=== PATIENT | female | born 1940 | race Asian ===

== ENCOUNTER 2017-12-26 02:19 | Inpatient (IN) | payer MEDICARE, BC ==
[2017-12-26] MEDS: NORepinephrine 8MG/250 ML (PMX 250 ML IV (03:40)
[2017-12-26 06:09] LABS: ABNORMAL IP MESSAGE 1; HEMATOCRIT 24.5 % (37.0-47.0); HEMOGLOBIN 7.5 g/dl (12.0-16.0); MEAN CORPUSCULAR HEMOGLOBIN 27.6 pg (29.0-33.0); MEAN CORPUSCULAR HGB CONC 30.6 g/dl (32.0-37.0); MEAN CORPUSCULAR VOLUME 90.1 fl (82.0-101.0); MEAN PLATELET VOLUME 11.7 fl (7.4-10.4); NUCLEATED RED BLOOD CELLS% 0.6 /100WBC (0.0-0.0); PLATELET COUNT 157 10^3/UL (140-415); RED BLOOD COUNT 2.72 10^6/ul (4.20-5.40); RED CELL DISTRIBUTION WIDTH 22.5 % (11.5-14.5)
[2017-12-26 06:09] LABS: WHITE BLOOD COUNT 17.9 10^3/ul (4.8-10.8)
[2017-12-26 06:29] LABS: ADD MAN DIFF? YES; POSITIVE DIFF @See below
[2017-12-26] MEDS ORDERED: ONDANSETRON 4 MG INJ IV (06:30)
[2017-12-26] MEDS ORDERED: AMIKACIN IV PER PHARMACY XX (06:30)
[2017-12-26] MEDS ORDERED: ACETAMINOPHEN 650MG/20.3ML CUP GTB (06:30)
[2017-12-26] MEDS ORDERED: SOD CHLORIDE 0.9% 500 ML IV (06:30)
[2017-12-26] MEDS ORDERED: COLLAGENASE 30 GM TUBE TOP (06:30)
[2017-12-26] MEDS: metroNIDAZOLE 500 MG TAB GTB ×3 (06:35→22:12)
[2017-12-26] MEDS: LANSOPRAZOLE 30 MG CAP GTB (06:35)
[2017-12-26] MEDS: LACTOBACILLUS RHAMNOSUS CAP GTB ×3 (06:35→22:12)
[2017-12-26] MEDS: DEXTROSE 5%-0.45% NACL 1,000 ML IV ×2 (06:36→21:28)
[2017-12-26 07:02] LABS: LACTIC ACID 7.9 mmol/L (0.5-2.0)
[2017-12-26 08:00] LABS: ANION GAP 24 (8-16); BLOOD UREA NITROGEN 83 mg/dl (7-20); CALCIUM 8.6 mg/dl (8.4-10.2); CARBON DIOXIDE 17 mmol/L (21-31); CHLORIDE 104 mmol/L (97-110); CREATININE 1.45 mg/dl (0.44-1.00); GLUCOSE 90 mg/dl (70-220); MAGNESIUM 2.3 mg/dl (1.7-2.5); POTASSIUM 4.6 mmol/L (3.5-5.1); SODIUM 140 mmol/L (135-144)
[2017-12-26] MEDS: Insulin NOVOLOG SS Algorithm ONE SC ×4 (09:00→21:00)
[2017-12-26] MEDS ORDERED: EPOETIN 10000 UNITS/1 ML INJ (ESRD) IV (09:00)
[2017-12-26] MEDS: ACCU-CHEK BARLOW XX ×4 (09:00→21:26)
[2017-12-26 09:14] LABS: ANISOCYTOSIS 2+ (0-0); BAND NEUTROPHILS #M 0.1 10^3/ul (0.0-0.6); BAND NEUTROPHILS % (M) 1 % (0-4); BURR CELLS 1+ (0-0); EOSINOPHILS % (M) 12 % (0-7); ERYTHROBLAST% (NRBC) (M) 1 % (0-0); LYMPHOCYTES #M 0.3 10^3/ul (0.8-2.9); LYMPHOCYTES % (M) 2 % (15-51); MONOCYTE #M 0.5 10^3/ul (0.3-0.9); MONOCYTES % (M) 3 % (0-11); PLATELET ESTIMATE NORMAL; POIKILOCYTOSIS 2+ (0-0); POLYCHROMASIA 1+ (0-0); SEG NEUT #M 14.7 10^3/ul (1.6-7.5); SEGMENTED NEUTROPHILS (M) % 82 % (39-77); TARGET CELLS 2+ (0-0)
[2017-12-26] MEDS: LINAGLIPTIN 5 MG TABLET GTB (10:45)
[2017-12-26] MEDS: ZYVOX 600 MG TAB GTB ×2 (10:45→21:26)
[2017-12-26] MEDS: FLUCONAZOLE 100 MG TAB GTB (10:48)
[2017-12-26] MEDS: NYSTATIN 30 GM POWDER BTL TOP ×3 (10:50→21:28)
[2017-12-26] MEDS: HYDROCORTISONE 1% 28 GM CR TOP ×3 (10:50→21:41)
[2017-12-26] MEDS: SILVER SULFADIAZINE 1% 25 GM CR TOP (10:51)
[2017-12-26] MEDS: COLLAGENASE 30 GM TUBE TOP (10:51)
[2017-12-26] MEDS: INSULIN DETEMIR [LEVEMIR] 3ML CART SC ×2 (10:53→21:32)
[2017-12-26] MEDS: HEPARIN 5,000 UNIT/0.5 ML VIAL SC ×2 (10:54→21:33)
[2017-12-26 14:30] LABS: LACTIC ACID 5.2 mmol/L (0.5-2.0)
[2017-12-26] MEDS: LIDOCAINE 1% (MPF) 5 ML VIAL SC (15:35)
[2017-12-26] MEDS: DEXTROSE 50% 50 ML SYRINGE IV (17:54)
[2017-12-26 20:23] LABS: LACTIC ACID 3.3 mmol/L (0.5-2.0)
[2017-12-26] MEDS: ATORVASTATIN 80 MG TAB GTB (21:27)
[2017-12-26] MEDS: FAMOTIDINE 20 MG TAB GTB (21:27)
[2017-12-27 00:28] LABS: LACTIC ACID 2.6 mmol/L (0.5-2.0)
[2017-12-27] MEDS: Insulin NOVOLOG SS Algorithm ONE SC ×6 (01:00→21:00)
[2017-12-27] MEDS: ACCU-CHEK BARLOW XX ×6 (01:09→21:00)
[2017-12-27] MEDS: DEXTROSE 50% 50 ML SYRINGE IV ×5 (01:17→18:00)
[2017-12-27 05:16] LABS: ADD MAN DIFF? NO
[2017-12-27 05:17] LABS: ABNORMAL IP MESSAGE 1; BASOPHILS % 0.1 % (0.0-2.0); EOSINOPHILS # 0.2 10^3/ul (0.0-0.5); EOSINOPHILS % 1.1 % (0.0-7.0); HEMATOCRIT 18.8 % (37.0-47.0); LYMPHOCYTES # 0.9 10^3/ul (0.8-2.9); LYMPHOCYTES % 6.1 % (15.0-51.0); MEAN CORPUSCULAR HEMOGLOBIN 28.1 pg (29.0-33.0); MEAN CORPUSCULAR HGB CONC 32.4 g/dl (32.0-37.0); MEAN CORPUSCULAR VOLUME 86.6 fl (82.0-101.0); MEAN PLATELET VOLUME 12.5 fl (7.4-10.4); MONOCYTE # 0.7 10^3/ul (0.3-0.9); MONOCYTES % 4.6 % (0.0-11.0); NEUTROPHIL # 13.2 10^3/ul (1.6-7.5); NEUTROPHILS % 87.6 % (39.0-77.0); NUCLEATED RED BLOOD CELLS% 0.3 /100WBC (0.0-0.0); PLATELET COUNT 136 10^3/UL (140-415); RED BLOOD COUNT 2.17 10^6/ul (4.20-5.40); RED CELL DISTRIBUTION WIDTH 21.8 % (11.5-14.5)
[2017-12-27 05:17] LABS: WHITE BLOOD COUNT 15.1 10^3/ul (4.8-10.8)
[2017-12-27 05:27] LABS: POSITIVE DIFF @See below
[2017-12-27 05:29] LABS: HEMOGLOBIN 6.1 g/dl (12.0-16.0)
[2017-12-27 05:37] LABS: INR 1.43; PROTIME 17.7 Sec (11.9-14.9); PT RATIO 1.4
[2017-12-27 06:10] LABS: LACTIC ACID 2.2 mmol/L (0.5-2.0)
[2017-12-27] MEDS: metroNIDAZOLE 500 MG TAB GTB ×3 (06:18→22:45)
[2017-12-27] MEDS: LACTOBACILLUS RHAMNOSUS CAP GTB ×3 (06:18→22:45)
[2017-12-27] MEDS: LANSOPRAZOLE 30 MG CAP GTB (06:18)
[2017-12-27 06:20] LABS: ADD MAN DIFF? NO
[2017-12-27 06:26] LABS: WHITE BLOOD COUNT 16.4 10^3/ul (4.8-10.8)
[2017-12-27 06:26] LABS: ABNORMAL IP MESSAGE 1; BASOPHILS % 0.2 % (0.0-2.0); EOSINOPHILS # 0.2 10^3/ul (0.0-0.5); EOSINOPHILS % 1.2 % (0.0-7.0); HEMATOCRIT 20.3 % (37.0-47.0); LYMPHOCYTES # 1.2 10^3/ul (0.8-2.9); LYMPHOCYTES % 7.3 % (15.0-51.0); MEAN CORPUSCULAR HEMOGLOBIN 26.7 pg (29.0-33.0); MEAN CORPUSCULAR HGB CONC 31.5 g/dl (32.0-37.0); MEAN CORPUSCULAR VOLUME 84.6 fl (82.0-101.0); MONOCYTE # 0.8 10^3/ul (0.3-0.9); MONOCYTES % 5.1 % (0.0-11.0); NEUTROPHIL # 14.1 10^3/ul (1.6-7.5); NEUTROPHILS % 85.7 % (39.0-77.0); NUCLEATED RED BLOOD CELLS # 0.1 10^3/ul (0.0-0.0); NUCLEATED RED BLOOD CELLS% 0.3 /100WBC (0.0-0.0); PLATELET COUNT 140 10^3/UL (140-415); RED CELL DISTRIBUTION WIDTH 21.9 % (11.5-14.5)
[2017-12-27 06:32] LABS: POSITIVE DIFF @See below
[2017-12-27 06:33] LABS: HEMOGLOBIN 6.4 g/dl (12.0-16.0)
[2017-12-27 07:12] LABS: CREATINE KINASE 34 IU/L (23-200)
[2017-12-27 07:14] LABS: ALANINE AMINOTRANSFERASE 32 IU/L (13-69); ALBUMIN/GLOBULIN RATIO 0.62; ALKALINE PHOSPHATASE 443 IU/L (42-121); ANION GAP 15 (8-16); ASPARTATE AMINO TRANSFERASE 44 IU/L (15-46); BLOOD UREA NITROGEN 79 mg/dl (7-20); CALCIUM 7.1 mg/dl (8.4-10.2); CARBON DIOXIDE 19 mmol/L (21-31); CHLORIDE 100 mmol/L (97-110); CREATININE 1.34 mg/dl (0.44-1.00); HDL CHOLESTEROL 23 mg/dl (33-92); MAGNESIUM 1.9 mg/dl (1.7-2.5); POTASSIUM 3.5 mmol/L (3.5-5.1); SODIUM 130 mmol/L (135-144); TOTAL PROTEIN 5.2 g/dl (6.1-8.1); TRIGLYCERIDES 26 mg/dl (0-149)
[2017-12-27 07:16] LABS: CHOLESTEROL < 50 mg/dl (100-200)
[2017-12-27 07:24] LABS: CK INDEX 6.4; CK-MB 2.18 ng/ml (0.0-2.4)
[2017-12-27 07:25] LABS: GLUCOSE 672 mg/dl (70-220)
[2017-12-27 07:26] LABS: PHOSPHORUS 2.8 mg/dl (2.5-4.9)
[2017-12-27 09:18] LABS: FREE T4 (FREE THYROXINE) 1.43 ng/dl (0.78-2.44)
[2017-12-27] MEDS: HEPARIN 5,000 UNIT/0.5 ML VIAL SC ×2 (09:28→21:15)
[2017-12-27] MEDS: INSULIN DETEMIR [LEVEMIR] 3ML CART SC (09:30)
[2017-12-27] MEDS: HYDROCORTISONE 1% 28 GM CR TOP ×3 (09:43→21:12)
[2017-12-27] MEDS: COLLAGENASE 30 GM TUBE TOP (09:43)
[2017-12-27] MEDS: NYSTATIN 30 GM POWDER BTL TOP ×3 (09:43→21:12)
[2017-12-27] MEDS: SILVER SULFADIAZINE 1% 25 GM CR TOP (09:43)
[2017-12-27] MEDS: LINAGLIPTIN 5 MG TABLET GTB (09:44)
[2017-12-27] MEDS: FLUCONAZOLE 100 MG TAB GTB (09:44)
[2017-12-27] MEDS: ZYVOX 600 MG TAB GTB ×2 (09:44→21:12)
[2017-12-27 10:15] LABS: IRON 139 ug/dl (35-150)
[2017-12-27 10:21] LABS: TROPONIN-I 0.177 ng/ml (0.00-0.12)
[2017-12-27 10:25] LABS: AADO2 Arterial 69.9 mmHg (7.0-24.0); Arterial Blood Gas Oxygen Sat 98.1 mmHG (95.0-100.0); Arterial COHb 0.6 % (0.0-3.0); Arterial HCO3 20.7 mmol/L (22.0-26.0); Arterial MetHb 0.5 % (0.0-1.5); Arterial Total Hemglobin 7.6 g/dl (12.0-18.0); Arterial pCO2 30.9 mmhg (35-45); MODE VENT - AC; Site Right Brachial
[2017-12-27 10:26] LABS: % IRON SATURATION 49 % SAT (22-52); TOTAL IRON BINDING CAPACITY 282 ug/dl (241-421)
[2017-12-27] MEDS: IODIXANOL LOCM 100 ML BTL (10:46)
[2017-12-27] MEDS: SOD CHLORIDE 0.9% 100 ML (10:47)
[2017-12-27 11:30] LABS: IMMEDIATE SPIN CROSSMATCH 1 1
[2017-12-27] MEDS ORDERED: FLUCONAZOLE 100 MG TAB GTB (12:00)
[2017-12-27 12:39] LABS: LACTIC ACID 2.1 mmol/L (0.5-2.0)
[2017-12-27] MEDS: HEPARIN 1000 UNITS/ML 10 ML INJ CATHETER (14:38)
[2017-12-27] MEDS: AMIKACIN 250 MG in SOD CHLORIDE 0.9% 100 ML IVPB (14:47)
[2017-12-27 17:22] LABS: HEMOGLOBIN 7.3 g/dl (12.0-16.0)
[2017-12-27 17:52] LABS: TROPONIN-I 0.157 ng/ml (0.00-0.12)
[2017-12-27] MEDS: FAMOTIDINE 20 MG TAB GTB (21:12)
[2017-12-27] MEDS: ATORVASTATIN 80 MG TAB GTB (21:12)
[2017-12-28] MEDS: ACCU-CHEK BARLOW XX ×6 (01:00→21:39)
[2017-12-28] MEDS: Insulin NOVOLOG SS Algorithm ONE SC ×6 (01:00→21:00)
[2017-12-28 02:12] LABS: TROPONIN-I 0.144 ng/ml (0.00-0.12)
[2017-12-28] MEDS: metroNIDAZOLE 500 MG TAB GTB ×3 (06:23→21:30)
[2017-12-28] MEDS: LANSOPRAZOLE 30 MG CAP GTB (06:23)
[2017-12-28] MEDS: LACTOBACILLUS RHAMNOSUS CAP GTB ×3 (06:23→21:30)
[2017-12-28 06:48] LABS: ADD MAN DIFF? NO
[2017-12-28 06:50] LABS: BASOPHILS % 0.3 % (0.0-2.0); EOSINOPHILS # 0.3 10^3/ul (0.0-0.5); EOSINOPHILS % 2.4 % (0.0-7.0); HEMOGLOBIN 7.4 g/dl (12.0-16.0); LYMPHOCYTES # 1.1 10^3/ul (0.8-2.9); LYMPHOCYTES % 7.6 % (15.0-51.0); MEAN CORPUSCULAR HEMOGLOBIN 28.1 pg (29.0-33.0); MEAN CORPUSCULAR HGB CONC 32.2 g/dl (32.0-37.0); MEAN CORPUSCULAR VOLUME 87.5 fl (82.0-101.0); MEAN PLATELET VOLUME 12.3 fl (7.4-10.4); MONOCYTE # 0.7 10^3/ul (0.3-0.9); MONOCYTES % 5.2 % (0.0-11.0); NEUTROPHIL # 11.7 10^3/ul (1.6-7.5); NEUTROPHILS % 84.1 % (39.0-77.0); NUCLEATED RED BLOOD CELLS% 0.2 /100WBC (0.0-0.0); PLATELET COUNT 116 10^3/UL (140-415); RED BLOOD COUNT 2.63 10^6/ul (4.20-5.40); RED CELL DISTRIBUTION WIDTH 20.5 % (11.5-14.5)
[2017-12-28 06:50] LABS: WHITE BLOOD COUNT 13.9 10^3/ul (4.8-10.8)
[2017-12-28 07:12] LABS: ANION GAP 13 (8-16); BLOOD UREA NITROGEN 44 mg/dl (7-20); CALCIUM 7.9 mg/dl (8.4-10.2); CARBON DIOXIDE 26 mmol/L (21-31); CHLORIDE 102 mmol/L (97-110); CREATININE 1.03 mg/dl (0.44-1.00); GLUCOSE 70 mg/dl (70-220); POTASSIUM 3.9 mmol/L (3.5-5.1); SODIUM 137 mmol/L (135-144)
[2017-12-28 07:59] LABS: PHOSPHORUS 2.6 mg/dl (2.5-4.9)
[2017-12-28] MEDS ORDERED: EPOETIN 10000 UNITS/1 ML INJ (ESRD) SC (08:00)
[2017-12-28 08:01] LABS: HEMOGLOBIN A1C 6.2 % (0-5.9)
[2017-12-28] MEDS: FLUCONAZOLE 100 MG TAB GTB (09:10)
[2017-12-28] MEDS: HYDROCORTISONE 1% 28 GM CR TOP ×3 (09:10→21:30)
[2017-12-28] MEDS: SILVER SULFADIAZINE 1% 25 GM CR TOP (09:10)
[2017-12-28] MEDS: COLLAGENASE 30 GM TUBE TOP (09:10)
[2017-12-28] MEDS: LINAGLIPTIN 5 MG TABLET GTB (09:11)
[2017-12-28] MEDS: ZYVOX 600 MG TAB GTB ×2 (09:11→21:30)
[2017-12-28] MEDS: HEPARIN 5,000 UNIT/0.5 ML VIAL SC ×2 (09:14→21:37)
[2017-12-28] MEDS: NYSTATIN 30 GM POWDER BTL TOP ×3 (09:15→21:31)
[2017-12-28] MEDS: EPOETIN 10000 UNITS/1 ML INJ (ESRD) SC (12:00)
[2017-12-28] MEDS: FAMOTIDINE 20 MG TAB GTB (21:30)
[2017-12-28] MEDS: ATORVASTATIN 80 MG TAB GTB (21:30)
[2017-12-29] MEDS: ACCU-CHEK BARLOW XX ×6 (01:33→20:52)
[2017-12-29] MEDS: Insulin NOVOLOG SS Algorithm ONE SC ×6 (01:39→20:50)
[2017-12-29 05:49] LABS: ADD MAN DIFF? NO
[2017-12-29 05:53] LABS: BASOPHILS % 0.4 % (0.0-2.0); EOSINOPHILS # 0.2 10^3/ul (0.0-0.5); EOSINOPHILS % 1.9 % (0.0-7.0); HEMATOCRIT 22.6 % (37.0-47.0); HEMOGLOBIN 7.3 g/dl (12.0-16.0); LYMPHOCYTES # 1.4 10^3/ul (0.8-2.9); MEAN CORPUSCULAR HEMOGLOBIN 28.5 pg (29.0-33.0); MEAN CORPUSCULAR HGB CONC 32.3 g/dl (32.0-37.0); MEAN CORPUSCULAR VOLUME 88.3 fl (82.0-101.0); MEAN PLATELET VOLUME 12.7 fl (7.4-10.4); MONOCYTE # 0.7 10^3/ul (0.3-0.9); MONOCYTES % 6.1 % (0.0-11.0); NEUTROPHILS % 79.2 % (39.0-77.0); NUCLEATED RED BLOOD CELLS% 0.2 /100WBC (0.0-0.0); PLATELET COUNT 131 10^3/UL (140-415); RED BLOOD COUNT 2.56 10^6/ul (4.20-5.40)
[2017-12-29 05:53] LABS: WHITE BLOOD COUNT 11.4 10^3/ul (4.8-10.8)
[2017-12-29] MEDS: metroNIDAZOLE 500 MG TAB GTB ×3 (06:27→21:32)
[2017-12-29] MEDS: LACTOBACILLUS RHAMNOSUS CAP GTB ×3 (06:27→21:32)
[2017-12-29] MEDS: LANSOPRAZOLE 30 MG CAP GTB (06:27)
[2017-12-29] MEDS: NORepinephrine 8MG/250 ML (PMX 250 ML IV (06:41)
[2017-12-29 06:58] LABS: ANION GAP 18 (8-16); BLOOD UREA NITROGEN 62 mg/dl (7-20); CALCIUM 8.1 mg/dl (8.4-10.2); CARBON DIOXIDE 23 mmol/L (21-31); CHLORIDE 99 mmol/L (97-110); CREATININE 1.35 mg/dl (0.44-1.00); GLUCOSE 134 mg/dl (70-220); POTASSIUM 4.5 mmol/L (3.5-5.1); SODIUM 135 mmol/L (135-144)
[2017-12-29] MEDS: FLUCONAZOLE 100 MG TAB GTB (08:19)
[2017-12-29] MEDS: LINAGLIPTIN 5 MG TABLET GTB (08:19)
[2017-12-29] MEDS: ZYVOX 600 MG TAB GTB ×2 (08:20→20:50)
[2017-12-29] MEDS: SILVER SULFADIAZINE 1% 25 GM CR TOP (08:20)
[2017-12-29] MEDS: NYSTATIN 30 GM POWDER BTL TOP ×3 (08:20→20:52)
[2017-12-29] MEDS: HYDROCORTISONE 1% 28 GM CR TOP ×3 (08:20→20:51)
[2017-12-29] MEDS: COLLAGENASE 30 GM TUBE TOP (08:20)
[2017-12-29] MEDS: HEPARIN 5,000 UNIT/0.5 ML VIAL SC ×2 (08:25→20:54)
[2017-12-29] MEDS: ALBUMIN HUMAN 25% 50 ML IV (08:59)
[2017-12-29] MEDS: HEPARIN 1000 UNITS/ML 10 ML INJ CATHETER (11:42)
[2017-12-29] MEDS: DIGOXIN 500 MCG INJ IV (12:42)
[2017-12-29] MEDS: PHENYLephrine 20MG IN 250 ML 250 ML IV ×2 (13:40→17:26)
[2017-12-29] MEDS: AMIKACIN 250 MG in SOD CHLORIDE 0.9% 100 ML IVPB (15:02)
[2017-12-29] MEDS: EPOETIN 10000 UNITS/1 ML INJ (ESRD) SC (17:35)
[2017-12-29] MEDS: ATORVASTATIN 80 MG TAB GTB (20:49)
[2017-12-29] MEDS: FAMOTIDINE 20 MG TAB GTB (20:50)
[2017-12-30] MEDS: Insulin NOVOLOG SS Algorithm ONE SC ×6 (01:22→21:27)
[2017-12-30] MEDS: ACCU-CHEK BARLOW XX ×6 (01:23→21:21)
[2017-12-30] MEDS: PHENYLephrine 20MG IN 250 ML 250 ML IV ×3 (01:28→21:29)
[2017-12-30 05:34] LABS: ADD MAN DIFF? NO
[2017-12-30 05:43] LABS: WHITE BLOOD COUNT 11.9 10^3/ul (4.8-10.8)
[2017-12-30 05:43] LABS: ABNORMAL IP MESSAGE 1; BASOPHILS % 0.3 % (0.0-2.0); EOSINOPHILS # 0.2 10^3/ul (0.0-0.5); HEMATOCRIT 20.9 % (37.0-47.0); LYMPHOCYTES % 8.5 % (15.0-51.0); MEAN CORPUSCULAR HEMOGLOBIN 28.4 pg (29.0-33.0); MEAN CORPUSCULAR HGB CONC 32.1 g/dl (32.0-37.0); MEAN CORPUSCULAR VOLUME 88.6 fl (82.0-101.0); MEAN PLATELET VOLUME 12.4 fl (7.4-10.4); MONOCYTE # 0.8 10^3/ul (0.3-0.9); MONOCYTES % 6.3 % (0.0-11.0); NEUTROPHIL # 9.9 10^3/ul (1.6-7.5); NEUTROPHILS % 82.6 % (39.0-77.0); NUCLEATED RED BLOOD CELLS% 0.2 /100WBC (0.0-0.0); PLATELET COUNT 112 10^3/UL (140-415); RED BLOOD COUNT 2.36 10^6/ul (4.20-5.40); RED CELL DISTRIBUTION WIDTH 21.2 % (11.5-14.5)
[2017-12-30 05:57] LABS: HEMOGLOBIN 6.7 g/dl (12.0-16.0); POSITIVE DIFF @See below
[2017-12-30 06:07] LABS: ANION GAP 18 (8-16); BLOOD UREA NITROGEN 37 mg/dl (7-20); CALCIUM 8.1 mg/dl (8.4-10.2); CARBON DIOXIDE 24 mmol/L (21-31); CHLORIDE 103 mmol/L (97-110); GLUCOSE 99 mg/dl (70-220); POTASSIUM 3.7 mmol/L (3.5-5.1); SODIUM 141 mmol/L (135-144)
[2017-12-30] MEDS: LANSOPRAZOLE 30 MG CAP GTB (06:19)
[2017-12-30] MEDS: LACTOBACILLUS RHAMNOSUS CAP GTB ×3 (06:19→21:20)
[2017-12-30] MEDS: metroNIDAZOLE 500 MG TAB GTB ×3 (06:19→21:30)
[2017-12-30] MEDS: COLLAGENASE 30 GM TUBE TOP (08:37)
[2017-12-30] MEDS: HYDROCORTISONE 1% 28 GM CR TOP ×3 (08:37→21:21)
[2017-12-30] MEDS: LINAGLIPTIN 5 MG TABLET GTB (08:37)
[2017-12-30] MEDS: ZYVOX 600 MG TAB GTB ×2 (08:37→21:19)
[2017-12-30] MEDS: FLUCONAZOLE 100 MG TAB GTB (08:37)
[2017-12-30] MEDS: SILVER SULFADIAZINE 1% 25 GM CR TOP (08:38)
[2017-12-30] MEDS: NYSTATIN 30 GM POWDER BTL TOP ×3 (08:38→21:21)
[2017-12-30] MEDS: HEPARIN 5,000 UNIT/0.5 ML VIAL SC ×2 (08:46→21:27)
[2017-12-30 13:08] LABS: IMMEDIATE SPIN CROSSMATCH 1 2
[2017-12-30] MEDS: SOD CHLORIDE 0.9% 250 ML IV* (13:15)
[2017-12-30 14:11] LABS: PROCALCITONIN 1.35 ng/mL (<0.10)
[2017-12-30] MEDS: FAMOTIDINE 20 MG TAB GTB (21:19)
[2017-12-30] MEDS: ATORVASTATIN 80 MG TAB GTB (21:19)
[2017-12-31] MEDS: ACCU-CHEK BARLOW XX ×6 (01:21→21:22)
[2017-12-31] MEDS: Insulin NOVOLOG SS Algorithm ONE SC ×6 (01:23→21:30)
[2017-12-31 05:10] LABS: ADD MAN DIFF? NO
[2017-12-31 05:14] LABS: ABNORMAL IP MESSAGE 1; BASOPHILS % 0.3 % (0.0-2.0); EOSINOPHILS # 0.3 10^3/ul (0.0-0.5); EOSINOPHILS % 2.2 % (0.0-7.0); HEMATOCRIT 22.2 % (37.0-47.0); HEMOGLOBIN 7.3 g/dl (12.0-16.0); LYMPHOCYTES # 1.4 10^3/ul (0.8-2.9); LYMPHOCYTES % 11.5 % (15.0-51.0); MEAN CORPUSCULAR HEMOGLOBIN 28.9 pg (29.0-33.0); MEAN CORPUSCULAR HGB CONC 32.9 g/dl (32.0-37.0); MEAN CORPUSCULAR VOLUME 87.7 fl (82.0-101.0); MONOCYTE # 0.8 10^3/ul (0.3-0.9); MONOCYTES % 6.6 % (0.0-11.0); NEUTROPHIL # 9.5 10^3/ul (1.6-7.5); NEUTROPHILS % 79.1 % (39.0-77.0); PLATELET COUNT 83 10^3/UL (140-415); RED BLOOD COUNT 2.53 10^6/ul (4.20-5.40); RED CELL DISTRIBUTION WIDTH 20.7 % (11.5-14.5)
[2017-12-31 05:31] LABS: ANION GAP 18 (8-16); BLOOD UREA NITROGEN 57 mg/dl (7-20); CARBON DIOXIDE 21 mmol/L (21-31); CHLORIDE 105 mmol/L (97-110); CREATININE 1.38 mg/dl (0.44-1.00); GLUCOSE 172 mg/dl (70-220); POTASSIUM 3.9 mmol/L (3.5-5.1); SODIUM 140 mmol/L (135-144)
[2017-12-31] MEDS: LACTOBACILLUS RHAMNOSUS CAP GTB ×3 (05:47→21:20)
[2017-12-31] MEDS: LANSOPRAZOLE 30 MG CAP GTB (05:47)
[2017-12-31 06:32] LABS: POSITIVE DIFF @See below
[2017-12-31 07:31] LABS: MEAN PLATELET VOLUME 12.9 fl (7.4-10.4)
[2017-12-31] MEDS: FLUCONAZOLE 100 MG TAB GTB (08:11)
[2017-12-31] MEDS: metroNIDAZOLE 500 MG TAB GTB ×3 (08:11→21:20)
[2017-12-31] MEDS: ZYVOX 600 MG TAB GTB (08:11)
[2017-12-31] MEDS: LINAGLIPTIN 5 MG TABLET GTB (08:11)
[2017-12-31] MEDS: HEPARIN 5,000 UNIT/0.5 ML VIAL SC ×2 (08:16→21:30)
[2017-12-31] MEDS: COLLAGENASE 30 GM TUBE TOP (08:18)
[2017-12-31] MEDS: HYDROCORTISONE 1% 28 GM CR TOP ×3 (08:18→21:21)
[2017-12-31] MEDS: NYSTATIN 30 GM POWDER BTL TOP ×3 (08:18→21:21)
[2017-12-31] MEDS ORDERED: VANCOMYCIN IV PER PHARMACY XX (10:00)
[2017-12-31] MEDS: VANCOMYCIN 1.25 GM in SOD CHLORIDE 0.9% 250 ML IVPB (12:03)
[2017-12-31] MEDS: SILVER SULFADIAZINE 1% 25 GM CR TOP (12:03)
[2017-12-31] MEDS ORDERED: GLUCOSE GEL 15 GRAM TUBE BUCCAL (17:30)
[2017-12-31] MEDS ORDERED: GLUCAGON 1 MG INJ IM (17:30)
[2017-12-31] MEDS ORDERED: DEXTROSE 50% 50 ML SYRINGE IV ×2 (17:30)
[2017-12-31] MEDS ORDERED: GLUCOSE GEL 15 GRAM TUBE PO ×2 (17:30)
[2017-12-31] MEDS: FAMOTIDINE 20 MG TAB GTB (21:20)
[2017-12-31] MEDS: ATORVASTATIN 80 MG TAB GTB (21:21)
[2017-12-31] MEDS: INSULIN DETEMIR [LEVEMIR] 3ML CART SC (21:31)
[2018-01-01] MEDS: ACCU-CHEK BARLOW XX ×5 (00:38→16:10)
[2018-01-01] MEDS: Insulin NOVOLOG SS Algorithm ONE SC ×5 (00:40→16:10)
[2018-01-01 05:44] LABS: ABNORMAL IP MESSAGE 1; HEMATOCRIT 21.1 % (37.0-47.0); MEAN CORPUSCULAR HEMOGLOBIN 28.5 pg (29.0-33.0); MEAN CORPUSCULAR HGB CONC 32.2 g/dl (32.0-37.0); MEAN CORPUSCULAR VOLUME 88.3 fl (82.0-101.0); MEAN PLATELET VOLUME 11.1 fl (7.4-10.4); PLATELET COUNT 59 10^3/UL (140-415); RED BLOOD COUNT 2.39 10^6/ul (4.20-5.40); RED CELL DISTRIBUTION WIDTH 20.7 % (11.5-14.5)
[2018-01-01 05:53] LABS: ADD MAN DIFF? YES; HEMOGLOBIN 6.8 g/dl (12.0-16.0); POSITIVE DIFF @See below
[2018-01-01 06:01] LABS: ANION GAP 14 (8-16); BLOOD UREA NITROGEN 76 mg/dl (7-20); CARBON DIOXIDE 24 mmol/L (21-31); CHLORIDE 108 mmol/L (97-110); CREATININE 1.64 mg/dl (0.44-1.00); GLUCOSE 142 mg/dl (70-220); POTASSIUM 3.7 mmol/L (3.5-5.1); SODIUM 142 mmol/L (135-144)
[2018-01-01 06:11] LABS: MAGNESIUM 2.5 mg/dl (1.7-2.5)
[2018-01-01 06:11] LABS: PHOSPHORUS 2.1 mg/dl (2.5-4.9)
[2018-01-01] MEDS: LACTOBACILLUS RHAMNOSUS CAP GTB ×2 (06:32→14:47)
[2018-01-01] MEDS: metroNIDAZOLE 500 MG TAB GTB ×2 (06:32→14:47)
[2018-01-01] MEDS: LANSOPRAZOLE 30 MG CAP GTB (06:32)
[2018-01-01] MEDS: ALBUMIN HUMAN 25% 50 ML IV ×2 (08:51→09:49)
[2018-01-01] MEDS: HEPARIN 5,000 UNIT/0.5 ML VIAL SC (09:00)
[2018-01-01] MEDS: FLUCONAZOLE 100 MG TAB GTB (09:11)
[2018-01-01] MEDS: LINAGLIPTIN 5 MG TABLET GTB (09:12)
[2018-01-01] MEDS: SILVER SULFADIAZINE 1% 25 GM CR TOP (09:12)
[2018-01-01] MEDS: NYSTATIN 30 GM POWDER BTL TOP ×2 (09:12→13:00)
[2018-01-01] MEDS: COLLAGENASE 30 GM TUBE TOP (09:13)
[2018-01-01] MEDS: HYDROCORTISONE 1% 28 GM CR TOP ×2 (09:14→13:01)
[2018-01-01] MEDS: INSULIN DETEMIR [LEVEMIR] 3ML CART SC (09:20)
[2018-01-01 09:22] LABS: ANISOCYTOSIS 3+ (0-0); BAND NEUTROPHILS #M 0.8 10^3/ul (0.0-0.6); BAND NEUTROPHILS % (M) 7 % (0-4); GIANT THROMBO% (M) 3 % (0-0); HYPOCHROMASIA 1+ (0-0); LYMPHOCYTES #M 0.8 10^3/ul (0.8-2.9); LYMPHOCYTES % (M) 7 % (15-51); MICROCYTOSIS 1+ (0-0); MONOCYTE #M 0.3 10^3/ul (0.3-0.9); MONOCYTES % (M) 3 % (0-11); PLATELET ESTIMATE SIG DECREASED; POIKILOCYTOSIS 3+ (0-0); POLYCHROMASIA 3+ (0-0); SEG NEUT #M 10.1 10^3/ul (1.6-7.5); SEGMENTED NEUTROPHILS (M) % 83 % (39-77)
[2018-01-01] MEDS: HEPARIN 1000 UNITS/ML 10 ML INJ CATHETER (11:12)
[2018-01-01 11:35] LABS: WHITE BLOOD COUNT 10.3 10^3/ul (4.8-10.8)
[2018-01-01 11:35] LABS: ABNORMAL IP MESSAGE 1; HEMATOCRIT 19.2 % (37.0-47.0); MEAN CORPUSCULAR HEMOGLOBIN 28.6 pg (29.0-33.0); MEAN CORPUSCULAR HGB CONC 32.8 g/dl (32.0-37.0); MEAN CORPUSCULAR VOLUME 87.3 fl (82.0-101.0); PLATELET COUNT 63 10^3/UL (140-415); RED CELL DISTRIBUTION WIDTH 20.4 % (11.5-14.5)
[2018-01-01 11:37] LABS: POSITIVE DIFF @See below
[2018-01-01 11:38] LABS: HEMOGLOBIN 6.3 g/dl (12.0-16.0)
[2018-01-01 11:39] LABS: ADD MAN DIFF? YES
[2018-01-01 12:42] LABS: BAND NEUTROPHILS #M 0.4 10^3/ul (0.0-0.6); BAND NEUTROPHILS % (M) 4 % (0-4); EOSINOPHILS % (M) 4 % (0-7); GIANT THROMBO% (M) 2 % (0-0); LYMPHOCYTES #M 0.6 10^3/ul (0.8-2.9); LYMPHOCYTES % (M) 6 % (15-51); MONOCYTE #M 0.2 10^3/ul (0.3-0.9); MONOCYTES % (M) 2 % (0-11); SEG NEUT #M 8.7 10^3/ul (1.6-7.5); SEGMENTED NEUTROPHILS (M) % 84 % (39-77); SMUDGE%M 2 % (0-0)
[2018-01-01] MEDS: AMIKACIN 250 MG in SOD CHLORIDE 0.9% 100 ML IVPB (12:52)
[2018-01-01] MEDS: EPOETIN 10000 UNITS/1 ML INJ (ESRD) SC (16:05)
== END 2018-01-01 16:45 | DRG 870 ==
LOC: ICU 02:19
PROC: 02HV33Z Insertion of Infusion Device into Superior Vena Cava, Percutaneous Approach (ICD-10-PCS; principal; 2017-12-26)
PROC: 5A1955Z Respiratory Ventilation, Greater than 96 Consecutive Hours (ICD-10-PCS; 2017-12-27)
PROC: 5A1D70Z Performance of Urinary Filtration, Intermittent, Less than 6 Hours Per Day (ICD-10-PCS; 2017-12-27)
PROC: 30233N1 Transfusion of Nonautologous Red Blood Cells into Peripheral Vein, Percutaneous Approach (ICD-10-PCS; 2017-12-27)
DX: A41.9 Sepsis, unspecified organism (principal); R65.21 Severe sepsis with septic shock; J18.9 Pneumonia, unspecified organism; G93.49 Other encephalopathy; J96.11 Chronic respiratory failure with hypoxia; N17.9 Acute kidney failure, unspecified; I50.32 Chronic diastolic (congestive) heart failure; I42.9 Cardiomyopathy, unspecified; E11.52 Type 2 diabetes mellitus with diabetic peripheral angiopathy with gangrene; I96 Gangrene, not elsewhere classified; B37.49 Other urogenital candidiasis; I13.0 Hypertensive heart and chronic kidney disease with heart failure and stage 1 through stage 4 chronic kidney disease, or unspecified chronic kidney disease; Z93.0 Tracheostomy status; I69.391 Dysphagia following cerebral infarction; R13.19 Other dysphagia; D50.0 Iron deficiency anemia secondary to blood loss (chronic); N93.9 Abnormal uterine and vaginal bleeding, unspecified; N85.9 Noninflammatory disorder of uterus, unspecified; I69.998 Other sequelae following unspecified cerebrovascular disease; I25.10 Atherosclerotic heart disease of native coronary artery without angina pectoris; E11.65 Type 2 diabetes mellitus with hyperglycemia; E11.649 Type 2 diabetes mellitus with hypoglycemia without coma; I48.0 Paroxysmal atrial fibrillation; N18.9 Chronic kidney disease, unspecified; L89.95 Pressure ulcer of unspecified site, unstageable; Z99.2 Dependence on renal dialysis; Z93.1 Gastrostomy status; Z66 Do not resuscitate; Z79.4 Long term (current) use of insulin
CPT/HCPCS: 36430; 36569; 36600; 71045; 74177; 76937; 80048; 80053; 80061; 82533; 82550; 82553; 82803; 82962; 83036; 83540; 83605; 83735; 84100; 84145; 84439; 84443; 84484; 85018; 85025; 85610; 86850; 86900; 86901; 86920; 87081; 90935; 93005; 93306; 94002; 94003

== ENCOUNTER 2018-01-04 23:07 | Inpatient (IN) | payer MEDICARE, BC ==
[2018-01-05] MEDS ORDERED: NACL 0.9% 3 ML SYG IV (01:00)
[2018-01-05] MEDS ORDERED: AMIKACIN IV PER PHARMACY XX (01:00)
[2018-01-05] MEDS ORDERED: VANCOMYCIN IV PER PHARMACY XX (01:00)
[2018-01-05] MEDS: SOD CHLORIDE 0.9% 1,000 ML IV (01:09)
[2018-01-05] MEDS: NORepinephrine 8MG/250 ML (PMX 250 ML IV ×2 (01:10→20:53)
[2018-01-05] MEDS: PANTOPRAZOLE IV 80 MG in SOD CHLORIDE 0.9% 100 ML IVPB (01:49)
[2018-01-05] MEDS: PANTOPRAZOLE IV 80 MG in SOD CHLORIDE 0.9% 100 ML IV ×3 (01:49→20:49)
[2018-01-05] MEDS: SOD CHLORIDE 0.9% IVPB (01:50)
[2018-01-05] MEDS: AMIKACIN IVPB (01:50)
[2018-01-05 02:02] LABS: ADD MAN DIFF? NO
[2018-01-05 02:14] LABS: WHITE BLOOD COUNT 18.1 10^3/ul (4.8-10.8)
[2018-01-05 02:14] LABS: ABNORMAL IP MESSAGE 1; BASOPHIL # 0.1 10^3/ul (0.0-0.1); BASOPHILS % 0.3 % (0.0-2.0); EOSINOPHILS # 0.2 10^3/ul (0.0-0.5); EOSINOPHILS % 1.1 % (0.0-7.0); HEMATOCRIT 19.7 % (37.0-47.0); LYMPHOCYTES % 11.1 % (15.0-51.0); MEAN CORPUSCULAR HEMOGLOBIN 28.9 pg (29.0-33.0); MEAN CORPUSCULAR VOLUME 87.6 fl (82.0-101.0); MONOCYTE # 2.5 10^3/ul (0.3-0.9); MONOCYTES % 13.6 % (0.0-11.0); NEUTROPHILS % 71.9 % (39.0-77.0); NUCLEATED RED BLOOD CELLS% 0.1 /100WBC (0.0-0.0); PLATELET COUNT 54 10^3/UL (140-415); RED BLOOD COUNT 2.25 10^6/ul (4.20-5.40); RED CELL DISTRIBUTION WIDTH 19.1 % (11.5-14.5)
[2018-01-05 02:22] LABS: ALANINE AMINOTRANSFERASE 32 IU/L (13-69); ALBUMIN 2.4 g/dl (3.3-4.9); ALBUMIN/GLOBULIN RATIO 0.72; ALKALINE PHOSPHATASE 663 IU/L (42-121); ANION GAP 13 (8-16); ASPARTATE AMINO TRANSFERASE 39 IU/L (15-46); BLOOD UREA NITROGEN 66 mg/dl (7-20); CALCIUM 7.5 mg/dl (8.4-10.2); CARBON DIOXIDE 27 mmol/L (21-31); CHLORIDE 106 mmol/L (97-110); CREATININE 1.07 mg/dl (0.44-1.00); GLUCOSE 176 mg/dl (70-220); POTASSIUM 3.8 mmol/L (3.5-5.1); SODIUM 142 mmol/L (135-144); TOTAL PROTEIN 5.7 g/dl (6.1-8.1)
[2018-01-05 02:44] LABS: HEMOGLOBIN 6.5 g/dl (12.0-16.0); POSITIVE DIFF @See below
[2018-01-05] MEDS: VANCOMYCIN 1.25 GM in SOD CHLORIDE 0.9% 250 ML IVPB (03:57)
[2018-01-05] MEDS ORDERED: ONDANSETRON 4 MG INJ IV (05:30)
[2018-01-05] MEDS ORDERED: GLUCOSE GEL 15 GRAM TUBE BUCCAL (05:30)
[2018-01-05] MEDS ORDERED: BALSAM PERU/CASTOR OIL 60 GM TUBE TOP (05:30)
[2018-01-05] MEDS ORDERED: ACETAMINOPHEN 650MG/20.3ML CUP GTB (05:30)
[2018-01-05] MEDS ORDERED: GLUCOSE GEL 15 GRAM TUBE PO ×2 (05:30)
[2018-01-05] MEDS ORDERED: GLUCAGON 1 MG INJ IM (05:30)
[2018-01-05] MEDS ORDERED: DEXTROSE 50% 50 ML SYRINGE IV (05:30)
[2018-01-05] MEDS: LACTOBACILLUS RHAMNOSUS CAP GTB ×3 (05:34→21:00)
[2018-01-05] MEDS: metroNIDAZOLE 500 MG TAB GTB (05:44)
[2018-01-05] MEDS: METOCLOPRAMIDE 10 MG INJ IV ×3 (05:44→17:50)
[2018-01-05] MEDS ORDERED: LANSOPRAZOLE 30 MG CAP GTB (06:00)
[2018-01-05 06:34] LABS: ADD MAN DIFF? NO
[2018-01-05 06:44] LABS: WHITE BLOOD COUNT 17.8 10^3/ul (4.8-10.8)
[2018-01-05 06:44] LABS: ABNORMAL IP MESSAGE 1; BASOPHIL # 0.1 10^3/ul (0.0-0.1); BASOPHILS % 0.3 % (0.0-2.0); EOSINOPHILS # 0.2 10^3/ul (0.0-0.5); EOSINOPHILS % 1.2 % (0.0-7.0); HEMATOCRIT 24.3 % (37.0-47.0); LYMPHOCYTES # 1.8 10^3/ul (0.8-2.9); LYMPHOCYTES % 10.1 % (15.0-51.0); MEAN CORPUSCULAR HEMOGLOBIN 29.5 pg (29.0-33.0); MEAN CORPUSCULAR HGB CONC 32.9 g/dl (32.0-37.0); MEAN CORPUSCULAR VOLUME 89.7 fl (82.0-101.0); MONOCYTE # 2.5 10^3/ul (0.3-0.9); MONOCYTES % 13.7 % (0.0-11.0); NEUTROPHILS % 73.1 % (39.0-77.0); NUCLEATED RED BLOOD CELLS% 0.2 /100WBC (0.0-0.0); PLATELET COUNT 53 10^3/UL (140-415); RED BLOOD COUNT 2.71 10^6/ul (4.20-5.40)
[2018-01-05 06:59] LABS: POSITIVE DIFF @See below
[2018-01-05] MEDS ORDERED: FLUCONAZOLE 100 MG TAB GTB (09:00)
[2018-01-05] MEDS ORDERED: ACCU-CHEK BARLOW XX (09:00)
[2018-01-05] MEDS: Insulin NOVOLOG SS Algorithm ONE SC ×4 (09:00→20:50)
[2018-01-05] MEDS: COLLAGENASE 5 GM (UD JAR) TOP (09:00)
[2018-01-05] MEDS: LINAGLIPTIN 5 MG TABLET GTB (09:29)
[2018-01-05] MEDS: BALSAM PERU/CASTOR OIL 60 GM TUBE TOP (09:30)
[2018-01-05] MEDS: HYDROCORTISONE 1% 28 GM CR TOP ×3 (09:30→20:49)
[2018-01-05] MEDS: FLUCONAZOLE 100 MG/NS (PMX) 50 ML IVPB (09:31)
[2018-01-05] MEDS: NYSTATIN 30 GM POWDER BTL TOP ×3 (09:32→20:49)
[2018-01-05] MEDS: SILVER SULFADIAZINE 1% 25 GM CR TOP (09:32)
[2018-01-05] MEDS: INSULIN DETEMIR [LEVEMIR] 3ML CART SC ×2 (09:34→20:00)
[2018-01-05] MEDS: ERYTHROMYCIN ETHYL SUCC (80 MG/ML PO SYG) GTB ×3 (10:59→20:50)
[2018-01-05 12:23] LABS: ADD MAN DIFF? NO
[2018-01-05 12:26] LABS: WHITE BLOOD COUNT 19.5 10^3/ul (4.8-10.8)
[2018-01-05 12:26] LABS: ABNORMAL IP MESSAGE 1; BASOPHIL # 0.1 10^3/ul (0.0-0.1); BASOPHILS % 0.3 % (0.0-2.0); EOSINOPHILS # 0.4 10^3/ul (0.0-0.5); HEMATOCRIT 24.8 % (37.0-47.0); HEMOGLOBIN 8.3 g/dl (12.0-16.0); LYMPHOCYTES # 1.9 10^3/ul (0.8-2.9); LYMPHOCYTES % 9.9 % (15.0-51.0); MEAN CORPUSCULAR HEMOGLOBIN 29.3 pg (29.0-33.0); MEAN CORPUSCULAR HGB CONC 33.5 g/dl (32.0-37.0); MEAN CORPUSCULAR VOLUME 87.6 fl (82.0-101.0); MONOCYTE # 2.3 10^3/ul (0.3-0.9); MONOCYTES % 11.5 % (0.0-11.0); NEUTROPHIL # 14.6 10^3/ul (1.6-7.5); NEUTROPHILS % 74.9 % (39.0-77.0); NUCLEATED RED BLOOD CELLS # 0.1 10^3/ul (0.0-0.0); NUCLEATED RED BLOOD CELLS% 0.4 /100WBC (0.0-0.0); PLATELET COUNT 70 10^3/UL (140-415); RED BLOOD COUNT 2.83 10^6/ul (4.20-5.40); RED CELL DISTRIBUTION WIDTH 17.9 % (11.5-14.5)
[2018-01-05 12:30] LABS: POSITIVE DIFF @See below
[2018-01-05] MEDS: Metronidazole 500 MG in NS 100 ML IVPB ×2 (14:08→21:01)
[2018-01-05] MEDS: DEXTROSE 50% 50 ML SYRINGE IV ×3 (14:13→20:45)
[2018-01-05] MEDS: DEXTROSE 5%-0.9% NACL 1,000 ML IV (14:44)
[2018-01-05] MEDS: MEDROXYPROGESTERONE 10 MG TAB PO (14:44)
[2018-01-05 19:00] LABS: ADD MAN DIFF? NO
[2018-01-05 19:04] LABS: WHITE BLOOD COUNT 16.1 10^3/ul (4.8-10.8)
[2018-01-05 19:04] LABS: ABNORMAL IP MESSAGE 1; BASOPHILS % 0.2 % (0.0-2.0); EOSINOPHILS # 0.4 10^3/ul (0.0-0.5); EOSINOPHILS % 2.7 % (0.0-7.0); HEMOGLOBIN 7.8 g/dl (12.0-16.0); LYMPHOCYTES # 1.4 10^3/ul (0.8-2.9); LYMPHOCYTES % 8.5 % (15.0-51.0); MEAN CORPUSCULAR HEMOGLOBIN 29.7 pg (29.0-33.0); MEAN CORPUSCULAR HGB CONC 33.9 g/dl (32.0-37.0); MEAN CORPUSCULAR VOLUME 87.5 fl (82.0-101.0); MONOCYTE # 1.7 10^3/ul (0.3-0.9); MONOCYTES % 10.7 % (0.0-11.0); NEUTROPHIL # 12.3 10^3/ul (1.6-7.5); NEUTROPHILS % 76.7 % (39.0-77.0); NUCLEATED RED BLOOD CELLS # 0.1 10^3/ul (0.0-0.0); NUCLEATED RED BLOOD CELLS% 0.5 /100WBC (0.0-0.0); PLATELET COUNT 63 10^3/UL (140-415); RED BLOOD COUNT 2.63 10^6/ul (4.20-5.40); RED CELL DISTRIBUTION WIDTH 18.3 % (11.5-14.5)
[2018-01-05 19:14] LABS: POSITIVE DIFF @See below
[2018-01-05] MEDS: DEXTROSE 10% 1,000 ML IV (19:20)
[2018-01-05] MEDS: ATORVASTATIN 80 MG TAB GTB (20:50)
[2018-01-05] MEDS ORDERED: FAMOTIDINE 20 MG TAB GTB (21:00)
[2018-01-06] MEDS: METOCLOPRAMIDE 10 MG INJ IV ×4 (00:37→17:45)
[2018-01-06 00:56] LABS: ADD MAN DIFF? NO
[2018-01-06 01:00] LABS: ABNORMAL IP MESSAGE 1; BASOPHIL # 0.1 10^3/ul (0.0-0.1); BASOPHILS % 0.5 % (0.0-2.0); EOSINOPHILS # 0.5 10^3/ul (0.0-0.5); EOSINOPHILS % 2.9 % (0.0-7.0); HEMOGLOBIN 8.4 g/dl (12.0-16.0); LYMPHOCYTES # 1.8 10^3/ul (0.8-2.9); MEAN CORPUSCULAR HEMOGLOBIN 29.5 pg (29.0-33.0); MEAN CORPUSCULAR HGB CONC 33.6 g/dl (32.0-37.0); MEAN CORPUSCULAR VOLUME 87.7 fl (82.0-101.0); MONOCYTE # 1.7 10^3/ul (0.3-0.9); MONOCYTES % 9.5 % (0.0-11.0); NUCLEATED RED BLOOD CELLS # 0.1 10^3/ul (0.0-0.0); NUCLEATED RED BLOOD CELLS% 0.7 /100WBC (0.0-0.0); PLATELET COUNT 62 10^3/UL (140-415); RED BLOOD COUNT 2.85 10^6/ul (4.20-5.40); RED CELL DISTRIBUTION WIDTH 18.3 % (11.5-14.5)
[2018-01-06 01:00] LABS: WHITE BLOOD COUNT 18.4 10^3/ul (4.8-10.8)
[2018-01-06] MEDS: Insulin NOVOLOG SS Algorithm ONE SC ×6 (01:00→20:41)
[2018-01-06 01:07] LABS: POSITIVE DIFF @See below
[2018-01-06] MEDS ORDERED: VANCOMYCIN 1 GM 250 ML IVPB (03:00)
[2018-01-06 05:35] LABS: AADO2 Arterial 108.9 mmHg (7.0-24.0); Allen Test ACCEPTAB; Arterial Base Excess 1.8 mmol/L (-3.0-3); Arterial Blood Gas Oxygen Sat 95.8 mmHG (95.0-100.0); Arterial COHb 0.8 % (0.0-3.0); Arterial Fraction of Oxyhgb 94.4 % (93.0-99.0); Arterial HCO3 24.6 mmol/L (22.0-26.0); Arterial MetHb 0.7 % (0.0-1.5); Arterial Total Hemglobin 6.2 g/dl (12.0-18.0); Arterial pCO2 30.1 mmhg (35-45); MODE VENT - AC; Site Left Radial
[2018-01-06 05:36] LABS: ADD MAN DIFF? NO
[2018-01-06 05:44] LABS: ABNORMAL IP MESSAGE 1; BASOPHIL # 0.1 10^3/ul (0.0-0.1); BASOPHILS % 0.4 % (0.0-2.0); EOSINOPHILS # 0.4 10^3/ul (0.0-0.5); EOSINOPHILS % 2.7 % (0.0-7.0); HEMATOCRIT 26.4 % (37.0-47.0); HEMOGLOBIN 8.8 g/dl (12.0-16.0); LYMPHOCYTES # 1.7 10^3/ul (0.8-2.9); LYMPHOCYTES % 10.5 % (15.0-51.0); MEAN CORPUSCULAR HEMOGLOBIN 29.1 pg (29.0-33.0); MEAN CORPUSCULAR HGB CONC 33.3 g/dl (32.0-37.0); MEAN CORPUSCULAR VOLUME 87.4 fl (82.0-101.0); MONOCYTE # 1.6 10^3/ul (0.3-0.9); MONOCYTES % 9.6 % (0.0-11.0); NEUTROPHIL # 12.5 10^3/ul (1.6-7.5); NEUTROPHILS % 75.6 % (39.0-77.0); NUCLEATED RED BLOOD CELLS # 0.2 10^3/ul (0.0-0.0); NUCLEATED RED BLOOD CELLS% 0.9 /100WBC (0.0-0.0); PLATELET COUNT 79 10^3/UL (140-415); RED BLOOD COUNT 3.02 10^6/ul (4.20-5.40); RED CELL DISTRIBUTION WIDTH 18.6 % (11.5-14.5)
[2018-01-06 05:44] LABS: WHITE BLOOD COUNT 16.5 10^3/ul (4.8-10.8)
[2018-01-06 05:47] LABS: POSITIVE DIFF @See below
[2018-01-06 06:02] LABS: ANION GAP 8 (8-16); BLOOD UREA NITROGEN 74 mg/dl (7-20); CALCIUM 7.6 mg/dl (8.4-10.2); CARBON DIOXIDE 30 mmol/L (21-31); CHLORIDE 107 mmol/L (97-110); CREATININE 1.29 mg/dl (0.44-1.00); GLUCOSE 65 mg/dl (70-220); MAGNESIUM 2.4 mg/dl (1.7-2.5); PHOSPHORUS 1.5 mg/dl (2.5-4.9); SODIUM 141 mmol/L (135-144)
[2018-01-06 06:02] LABS: LACTIC ACID 1.5 mmol/L (0.5-2.0)
[2018-01-06] MEDS: LACTOBACILLUS RHAMNOSUS CAP GTB ×3 (06:07→21:48)
[2018-01-06] MEDS: Metronidazole 500 MG in NS 100 ML IVPB ×3 (06:07→21:48)
[2018-01-06] MEDS: PANTOPRAZOLE IV 80 MG in SOD CHLORIDE 0.9% 100 ML IV ×2 (06:11→15:39)
[2018-01-06 07:40] LABS: OCCULT BLOOD STOOL POSITIVE (NEGATIVE)
[2018-01-06] MEDS: INSULIN DETEMIR [LEVEMIR] 3ML CART SC ×2 (08:00→20:00)
[2018-01-06] MEDS: MEDROXYPROGESTERONE 10 MG TAB PO (08:32)
[2018-01-06] MEDS: MAGNESIUM SULFATE 2 GM/50 ML 50 ML IVPB (08:33)
[2018-01-06] MEDS: SILVER SULFADIAZINE 1% 25 GM CR TOP (08:33)
[2018-01-06] MEDS: HYDROCORTISONE 1% 28 GM CR TOP ×3 (08:33→20:42)
[2018-01-06] MEDS: BALSAM PERU/CASTOR OIL 60 GM TUBE TOP (08:34)
[2018-01-06] MEDS: COLLAGENASE 5 GM (UD JAR) TOP ×2 (08:34→08:39)
[2018-01-06] MEDS: LINAGLIPTIN 5 MG TABLET GTB (08:38)
[2018-01-06] MEDS: NYSTATIN 30 GM POWDER BTL TOP ×3 (08:39→20:42)
[2018-01-06] MEDS: FLUCONAZOLE 100 MG/NS (PMX) 50 ML IVPB (09:00)
[2018-01-06] MEDS: NEUTRA-PHOS 250 MG PACKET GTB ×2 (09:00→20:41)
[2018-01-06] MEDS: ERYTHROMYCIN ETHYL SUCC (80 MG/ML PO SYG) GTB ×3 (10:46→20:41)
[2018-01-06 14:09] LABS: ADD MAN DIFF? NO
[2018-01-06 14:11] LABS: ABNORMAL IP MESSAGE 1; BASOPHILS % 0.2 % (0.0-2.0); EOSINOPHILS # 0.5 10^3/ul (0.0-0.5); EOSINOPHILS % 2.8 % (0.0-7.0); HEMATOCRIT 23.8 % (37.0-47.0); HEMOGLOBIN 7.9 g/dl (12.0-16.0); LYMPHOCYTES # 1.7 10^3/ul (0.8-2.9); LYMPHOCYTES % 10.1 % (15.0-51.0); MEAN CORPUSCULAR HEMOGLOBIN 29.3 pg (29.0-33.0); MEAN CORPUSCULAR HGB CONC 33.2 g/dl (32.0-37.0); MEAN CORPUSCULAR VOLUME 88.1 fl (82.0-101.0); MONOCYTE # 1.5 10^3/ul (0.3-0.9); MONOCYTES % 8.7 % (0.0-11.0); NEUTROPHIL # 12.9 10^3/ul (1.6-7.5); NEUTROPHILS % 76.9 % (39.0-77.0); NUCLEATED RED BLOOD CELLS # 0.2 10^3/ul (0.0-0.0); NUCLEATED RED BLOOD CELLS% 1.4 /100WBC (0.0-0.0); PLATELET COUNT 88 10^3/UL (140-415); RED CELL DISTRIBUTION WIDTH 18.6 % (11.5-14.5)
[2018-01-06 14:11] LABS: WHITE BLOOD COUNT 16.8 10^3/ul (4.8-10.8)
[2018-01-06 18:47] LABS: ADD MAN DIFF? NO
[2018-01-06 18:51] LABS: ABNORMAL IP MESSAGE 1; BASOPHIL # 0.1 10^3/ul (0.0-0.1); BASOPHILS % 0.4 % (0.0-2.0); EOSINOPHILS # 0.5 10^3/ul (0.0-0.5); EOSINOPHILS % 2.9 % (0.0-7.0); HEMATOCRIT 23.6 % (37.0-47.0); LYMPHOCYTES # 1.4 10^3/ul (0.8-2.9); MEAN CORPUSCULAR HEMOGLOBIN 29.9 pg (29.0-33.0); MEAN CORPUSCULAR HGB CONC 33.9 g/dl (32.0-37.0); MEAN CORPUSCULAR VOLUME 88.1 fl (82.0-101.0); MONOCYTE # 1.6 10^3/ul (0.3-0.9); MONOCYTES % 9.8 % (0.0-11.0); NEUTROPHIL # 12.2 10^3/ul (1.6-7.5); NEUTROPHILS % 76.3 % (39.0-77.0); NUCLEATED RED BLOOD CELLS # 0.3 10^3/ul (0.0-0.0); NUCLEATED RED BLOOD CELLS% 1.8 /100WBC (0.0-0.0); PLATELET COUNT 119 10^3/UL (140-415); RED BLOOD COUNT 2.68 10^6/ul (4.20-5.40); RED CELL DISTRIBUTION WIDTH 18.9 % (11.5-14.5)
[2018-01-06 18:55] LABS: POSITIVE DIFF @See below
[2018-01-06] MEDS: DEXTROSE 10% 1,000 ML IV (19:08)
[2018-01-06] MEDS: ATORVASTATIN 80 MG TAB GTB (20:41)
[2018-01-07] MEDS: METOCLOPRAMIDE 10 MG INJ IV ×5 (00:50→23:30)
[2018-01-07] MEDS: Insulin NOVOLOG SS Algorithm ONE SC ×5 (00:56→12:39)
[2018-01-07] MEDS: PANTOPRAZOLE IV 80 MG in SOD CHLORIDE 0.9% 100 ML IV ×3 (02:18→23:18)
[2018-01-07 05:09] LABS: Allen Test ACCEPTAB; Arterial Blood Gas Oxygen Sat 97.1 mmHG (95.0-100.0); Arterial COHb 0.3 % (0.0-3.0); Arterial Fraction of Oxyhgb 96.6 % (93.0-99.0); Arterial HCO3 23.9 mmol/L (22.0-26.0); Arterial MetHb 0.2 % (0.0-1.5); Arterial Total Hemglobin 9.3 g/dl (12.0-18.0); Arterial pCO2 31.5 mmhg (35-45); MODE VENT - AC; Site Left Radial
[2018-01-07] MEDS: LACTOBACILLUS RHAMNOSUS CAP GTB ×3 (05:32→23:17)
[2018-01-07] MEDS: Metronidazole 500 MG in NS 100 ML IVPB ×3 (05:32→23:17)
[2018-01-07 07:41] LABS: ADD MAN DIFF? NO
[2018-01-07 07:51] LABS: BASOPHIL # 0.1 10^3/ul (0.0-0.1); BASOPHILS % 0.4 % (0.0-2.0); EOSINOPHILS # 0.3 10^3/ul (0.0-0.5); HEMATOCRIT 24.7 % (37.0-47.0); HEMOGLOBIN 8.2 g/dl (12.0-16.0); LYMPHOCYTES # 1.1 10^3/ul (0.8-2.9); LYMPHOCYTES % 7.4 % (15.0-51.0); MEAN CORPUSCULAR HEMOGLOBIN 29.9 pg (29.0-33.0); MEAN CORPUSCULAR HGB CONC 33.2 g/dl (32.0-37.0); MEAN CORPUSCULAR VOLUME 90.1 fl (82.0-101.0); MONOCYTE # 1.2 10^3/ul (0.3-0.9); MONOCYTES % 7.9 % (0.0-11.0); NEUTROPHILS % 81.1 % (39.0-77.0); NUCLEATED RED BLOOD CELLS # 0.4 10^3/ul (0.0-0.0); NUCLEATED RED BLOOD CELLS% 2.4 /100WBC (0.0-0.0); PLATELET COUNT 148 10^3/UL (140-415); RED BLOOD COUNT 2.74 10^6/ul (4.20-5.40); RED CELL DISTRIBUTION WIDTH 19.8 % (11.5-14.5)
[2018-01-07 07:51] LABS: WHITE BLOOD COUNT 14.8 10^3/ul (4.8-10.8)
[2018-01-07] MEDS: INSULIN DETEMIR [LEVEMIR] 3ML CART SC (08:00)
[2018-01-07 08:20] LABS: ANION GAP 14 (8-16); BLOOD UREA NITROGEN 72 mg/dl (7-20); CALCIUM 7.3 mg/dl (8.4-10.2); CARBON DIOXIDE 24 mmol/L (21-31); CHLORIDE 103 mmol/L (97-110); CREATININE 1.47 mg/dl (0.44-1.00); GLUCOSE 161 mg/dl (70-220); POTASSIUM 3.9 mmol/L (3.5-5.1); SODIUM 137 mmol/L (135-144)
[2018-01-07] MEDS: SILVER SULFADIAZINE 1% 25 GM CR TOP (09:00)
[2018-01-07] MEDS: NEUTRA-PHOS 250 MG PACKET GTB ×2 (09:00→20:50)
[2018-01-07] MEDS: BALSAM PERU/CASTOR OIL 60 GM TUBE TOP (09:00)
[2018-01-07] MEDS: ERYTHROMYCIN ETHYL SUCC (80 MG/ML PO SYG) GTB ×2 (09:00→13:26)
[2018-01-07] MEDS: COLLAGENASE 5 GM (UD JAR) TOP (09:00)
[2018-01-07] MEDS: HYDROCORTISONE 1% 28 GM CR TOP ×3 (09:21→20:51)
[2018-01-07] MEDS: NYSTATIN 30 GM POWDER BTL TOP ×3 (09:22→20:51)
[2018-01-07] MEDS: FLUCONAZOLE 100 MG/NS (PMX) 50 ML IVPB (10:00)
[2018-01-07] MEDS: ALBUMIN HUMAN 25% 100 ML IV ×2 (10:38→11:31)
[2018-01-07] MEDS: ALTEPLASE (CATHFLO) 2 MG INJ CATHETER (12:10)
[2018-01-07] MEDS: MEDROXYPROGESTERONE 10 MG TAB PO (13:26)
[2018-01-07] MEDS: INSULIN ASPART [NOVOLOG] 3 ML PEN SC ×2 (17:07→20:50)
[2018-01-07] MEDS: EPOETIN 10000 UNITS/1 ML INJ (ESRD) SC (17:08)
[2018-01-07] MEDS: AMIKACIN 250 MG in SOD CHLORIDE 0.9% 100 ML IVPB (17:09)
[2018-01-07] MEDS: ATORVASTATIN 80 MG TAB GTB (20:50)
[2018-01-07] MEDS: NORepinephrine 8MG/250 ML (PMX 250 ML IV (23:40)
[2018-01-08 05:35] LABS: ADD MAN DIFF? NO
[2018-01-08 05:52] LABS: WHITE BLOOD COUNT 13.6 10^3/ul (4.8-10.8)
[2018-01-08 05:52] LABS: BASOPHIL # 0.1 10^3/ul (0.0-0.1); BASOPHILS % 0.4 % (0.0-2.0); EOSINOPHILS # 0.3 10^3/ul (0.0-0.5); EOSINOPHILS % 1.8 % (0.0-7.0); HEMATOCRIT 25.2 % (37.0-47.0); HEMOGLOBIN 8.1 g/dl (12.0-16.0); LYMPHOCYTES # 1.1 10^3/ul (0.8-2.9); LYMPHOCYTES % 8.2 % (15.0-51.0); MEAN CORPUSCULAR HEMOGLOBIN 29.2 pg (29.0-33.0); MEAN CORPUSCULAR HGB CONC 32.1 g/dl (32.0-37.0); MEAN PLATELET VOLUME 12.4 fl (7.4-10.4); MONOCYTE # 1.1 10^3/ul (0.3-0.9); MONOCYTES % 7.9 % (0.0-11.0); NEUTROPHILS % 80.7 % (39.0-77.0); NUCLEATED RED BLOOD CELLS # 0.2 10^3/ul (0.0-0.0); NUCLEATED RED BLOOD CELLS% 1.1 /100WBC (0.0-0.0); PLATELET COUNT 200 10^3/UL (140-415); RED BLOOD COUNT 2.77 10^6/ul (4.20-5.40); RED CELL DISTRIBUTION WIDTH 20.4 % (11.5-14.5)
[2018-01-08 05:58] LABS: ANION GAP 15 (8-16); BLOOD UREA NITROGEN 43 mg/dl (7-20); CALCIUM 7.4 mg/dl (8.4-10.2); CARBON DIOXIDE 25 mmol/L (21-31); CHLORIDE 103 mmol/L (97-110); GLUCOSE 103 mg/dl (70-220); POTASSIUM 4.1 mmol/L (3.5-5.1); SODIUM 139 mmol/L (135-144)
[2018-01-08] MEDS: METOCLOPRAMIDE 10 MG INJ IV ×3 (06:26→18:18)
[2018-01-08] MEDS: LACTOBACILLUS RHAMNOSUS CAP GTB ×3 (06:26→21:30)
[2018-01-08] MEDS: Metronidazole 500 MG in NS 100 ML IVPB ×3 (06:27→21:30)
[2018-01-08] MEDS: INSULIN ASPART [NOVOLOG] 3 ML PEN SC ×4 (07:35→21:00)
[2018-01-08] MEDS: MEDROXYPROGESTERONE 10 MG TAB PO (08:10)
[2018-01-08] MEDS: NEUTRA-PHOS 250 MG PACKET GTB ×2 (08:10→21:30)
[2018-01-08] MEDS: BALSAM PERU/CASTOR OIL 60 GM TUBE TOP (08:11)
[2018-01-08] MEDS: NYSTATIN 30 GM POWDER BTL TOP ×3 (08:12→21:30)
[2018-01-08] MEDS: HYDROCORTISONE 1% 28 GM CR TOP ×3 (08:12→21:30)
[2018-01-08] MEDS: SILVER SULFADIAZINE 1% 25 GM CR TOP (08:12)
[2018-01-08] MEDS: PANTOPRAZOLE IV 80 MG in SOD CHLORIDE 0.9% 100 ML IV ×2 (08:16→19:28)
[2018-01-08] MEDS: COLLAGENASE 5 GM (UD JAR) TOP (09:00)
[2018-01-08] MEDS: FLUCONAZOLE 100 MG/NS (PMX) 50 ML IVPB (09:56)
[2018-01-08] MEDS: ATORVASTATIN 80 MG TAB GTB (21:30)
[2018-01-09] MEDS: METOCLOPRAMIDE 10 MG INJ IV ×4 (01:06→17:32)
[2018-01-09] MEDS: PANTOPRAZOLE IV 80 MG in SOD CHLORIDE 0.9% 100 ML IV ×2 (05:16→16:20)
[2018-01-09 05:29] LABS: HEMATOCRIT 23.8 % (37.0-47.0); HEMOGLOBIN 7.7 g/dl (12.0-16.0); MEAN CORPUSCULAR HEMOGLOBIN 29.4 pg (29.0-33.0); MEAN CORPUSCULAR HGB CONC 32.4 g/dl (32.0-37.0); MEAN CORPUSCULAR VOLUME 90.8 fl (82.0-101.0); MEAN PLATELET VOLUME 12.3 fl (7.4-10.4); NUCLEATED RED BLOOD CELLS% 0.4 /100WBC (0.0-0.0); PLATELET COUNT 233 10^3/UL (140-415); RED BLOOD COUNT 2.62 10^6/ul (4.20-5.40); RED CELL DISTRIBUTION WIDTH 20.7 % (11.5-14.5)
[2018-01-09 05:29] LABS: WHITE BLOOD COUNT 12.9 10^3/ul (4.8-10.8)
[2018-01-09] MEDS: LACTOBACILLUS RHAMNOSUS CAP GTB ×3 (05:35→21:16)
[2018-01-09] MEDS: Metronidazole 500 MG in NS 100 ML IVPB (05:35)
[2018-01-09 05:53] LABS: ANION GAP 14 (8-16); BLOOD UREA NITROGEN 46 mg/dl (7-20); CALCIUM 7.3 mg/dl (8.4-10.2); CARBON DIOXIDE 24 mmol/L (21-31); CHLORIDE 106 mmol/L (97-110); CREATININE 1.43 mg/dl (0.44-1.00); GLUCOSE 97 mg/dl (70-220); MAGNESIUM 2.4 mg/dl (1.7-2.5); PHOSPHORUS 4.3 mg/dl (2.5-4.9); POTASSIUM 4.1 mmol/L (3.5-5.1); SODIUM 140 mmol/L (135-144)
[2018-01-09 06:25] LABS: ADD MAN DIFF? YES; POSITIVE DIFF @See below
[2018-01-09] MEDS: INSULIN ASPART [NOVOLOG] 3 ML PEN SC ×4 (07:35→21:00)
[2018-01-09 07:40] LABS: ANISOCYTOSIS 1+ (0-0); BAND NEUTROPHILS #M 0.6 10^3/ul (0.0-0.6); BAND NEUTROPHILS % (M) 5 % (0-4); BURR CELLS 2+ (0-0); EOSINOPHILS % (M) 1 % (0-7); ERYTHROBLAST% (NRBC) (M) 2 % (0-0); HYPOCHROMASIA 2+ (0-0); LYMPHOCYTES #M 1.1 10^3/ul (0.8-2.9); LYMPHOCYTES % (M) 9 % (15-51); MICROCYTOSIS 1+ (0-0); MONOCYTE #M 0.3 10^3/ul (0.3-0.9); MONOCYTES % (M) 3 % (0-11); PLATELET ESTIMATE NORMAL; POIKILOCYTOSIS 2+ (0-0); POLYCHROMASIA 3+ (0-0); SEG NEUT #M 10.7 10^3/ul (1.6-7.5); SEGMENTED NEUTROPHILS (M) % 82 % (39-77); SMUDGE%M 6 % (0-0)
[2018-01-09] MEDS ORDERED: ALBUMIN HUMAN 25% 100 ML IV (09:00)
[2018-01-09 10:41] LABS: IMMEDIATE SPIN CROSSMATCH 1 1
[2018-01-09] MEDS: HEPARIN 1000 UNITS/ML 10 ML INJ CATHETER (11:22)
[2018-01-09] MEDS: MEDROXYPROGESTERONE 10 MG TAB PO (13:31)
[2018-01-09] MEDS: COLLAGENASE 5 GM (UD JAR) TOP (13:31)
[2018-01-09] MEDS: NEUTRA-PHOS 250 MG PACKET GTB ×2 (13:31→21:16)
[2018-01-09] MEDS: HYDROCORTISONE 1% 28 GM CR TOP ×3 (13:32→21:17)
[2018-01-09] MEDS: SILVER SULFADIAZINE 1% 25 GM CR TOP (13:32)
[2018-01-09] MEDS: NYSTATIN 30 GM POWDER BTL TOP ×3 (13:33→21:17)
[2018-01-09] MEDS: BALSAM PERU/CASTOR OIL 60 GM TUBE TOP (13:33)
[2018-01-09] MEDS: EPOETIN 10000 UNITS/1 ML INJ (ESRD) SC (17:31)
[2018-01-09] MEDS: ATORVASTATIN 80 MG TAB GTB (21:16)
[2018-01-10] MEDS: METOCLOPRAMIDE 10 MG INJ IV ×5 (00:44→23:01)
[2018-01-10] MEDS: PANTOPRAZOLE IV 80 MG in SOD CHLORIDE 0.9% 100 ML IV (03:22)
[2018-01-10] MEDS: LACTOBACILLUS RHAMNOSUS CAP GTB ×3 (05:37→22:46)
[2018-01-10] MEDS: COLLAGENASE 5 GM (UD JAR) TOP ×2 (05:37→09:37)
[2018-01-10] MEDS: INSULIN ASPART [NOVOLOG] 3 ML PEN SC ×4 (07:35→21:00)
[2018-01-10] MEDS: NEUTRA-PHOS 250 MG PACKET GTB ×2 (09:37→22:46)
[2018-01-10] MEDS: MEDROXYPROGESTERONE 10 MG TAB PO (09:37)
[2018-01-10] MEDS: SILVER SULFADIAZINE 1% 25 GM CR TOP (09:38)
[2018-01-10] MEDS: NYSTATIN 30 GM POWDER BTL TOP ×2 (09:38→14:06)
[2018-01-10] MEDS: BALSAM PERU/CASTOR OIL 60 GM TUBE TOP (09:38)
[2018-01-10] MEDS: HYDROCORTISONE 1% 28 GM CR TOP ×2 (09:39→14:05)
[2018-01-10] MEDS: ATORVASTATIN 80 MG TAB GTB (22:48)
[2018-01-10] MEDS ORDERED: VANCOMYCIN 1 GM 250 ML IVPB (23:00)
[2018-01-11] MEDS: PANTOPRAZOLE (EC) 40 MG TAB PO (06:00)
[2018-01-11] MEDS: NYSTATIN 30 GM POWDER BTL TOP ×4 (06:37→20:12)
[2018-01-11] MEDS: METOCLOPRAMIDE 10 MG INJ IV ×3 (06:38→17:34)
[2018-01-11] MEDS: HYDROCORTISONE 1% 28 GM CR TOP ×4 (06:38→20:12)
[2018-01-11] MEDS: LACTOBACILLUS RHAMNOSUS CAP GTB ×3 (06:38→20:10)
[2018-01-11] MEDS: INSULIN ASPART [NOVOLOG] 3 ML PEN SC ×4 (08:48→20:11)
[2018-01-11] MEDS: COLLAGENASE 5 GM (UD JAR) TOP (09:00)
[2018-01-11] MEDS: SILVER SULFADIAZINE 1% 25 GM CR TOP (09:00)
[2018-01-11 09:19] LABS: ADD MAN DIFF? NO
[2018-01-11 09:24] LABS: BASOPHIL # 0.1 10^3/ul (0.0-0.1); BASOPHILS % 0.3 % (0.0-2.0); EOSINOPHILS # 0.3 10^3/ul (0.0-0.5); EOSINOPHILS % 2.3 % (0.0-7.0); HEMATOCRIT 31.1 % (37.0-47.0); LYMPHOCYTES # 1.2 10^3/ul (0.8-2.9); LYMPHOCYTES % 8.5 % (15.0-51.0); MEAN CORPUSCULAR HEMOGLOBIN 29.2 pg (29.0-33.0); MEAN CORPUSCULAR HGB CONC 32.2 g/dl (32.0-37.0); MEAN CORPUSCULAR VOLUME 90.7 fl (82.0-101.0); MEAN PLATELET VOLUME 11.4 fl (7.4-10.4); MONOCYTE # 1.4 10^3/ul (0.3-0.9); MONOCYTES % 9.8 % (0.0-11.0); NEUTROPHIL # 11.2 10^3/ul (1.6-7.5); NEUTROPHILS % 78.1 % (39.0-77.0); NUCLEATED RED BLOOD CELLS% 0.1 /100WBC (0.0-0.0); PLATELET COUNT 296 10^3/UL (140-415); RED BLOOD COUNT 3.43 10^6/ul (4.20-5.40); RED CELL DISTRIBUTION WIDTH 20.2 % (11.5-14.5)
[2018-01-11 09:24] LABS: WHITE BLOOD COUNT 14.4 10^3/ul (4.8-10.8)
[2018-01-11 09:47] LABS: ANION GAP 16 (8-16); BLOOD UREA NITROGEN 28 mg/dl (7-20); CALCIUM 7.7 mg/dl (8.4-10.2); CARBON DIOXIDE 24 mmol/L (21-31); CHLORIDE 105 mmol/L (97-110); CREATININE 1.33 mg/dl (0.44-1.00); GLUCOSE 128 mg/dl (70-220); MAGNESIUM 2.3 mg/dl (1.7-2.5); PHOSPHORUS 3.6 mg/dl (2.5-4.9); POTASSIUM 3.8 mmol/L (3.5-5.1); SODIUM 141 mmol/L (135-144)
[2018-01-11] MEDS: BALSAM PERU/CASTOR OIL 60 GM TUBE TOP (10:19)
[2018-01-11] MEDS: NEUTRA-PHOS 250 MG PACKET GTB ×2 (10:19→20:10)
[2018-01-11] MEDS: MEDROXYPROGESTERONE 10 MG TAB PO (10:40)
[2018-01-11 10:54] LABS: HAAIG REFLEX REFLEX FILED
[2018-01-11] MEDS: HEPARIN 1000 UNITS/ML 10 ML INJ CATHETER (11:52)
[2018-01-11 12:29] LABS: HEPATITIS B SURFACE ANTIGEN NEGATIVE (NEGATIVE)
[2018-01-11 12:48] LABS: HEPATITIS B CORE ANTIBODY REACTIVE (NEGATIVE); HEPATITIS C VIRAL ANTIBODY NEGATIVE (NEGATIVE)
[2018-01-11] MEDS: EPOETIN 10000 UNITS/1 ML INJ (ESRD) SC (17:28)
[2018-01-11] MEDS: ATORVASTATIN 80 MG TAB GTB (20:10)
[2018-01-12] MEDS: METOCLOPRAMIDE 10 MG INJ IV ×4 (01:40→18:02)
[2018-01-12] MEDS: PANTOPRAZOLE 40 MG INJ IV (06:47)
[2018-01-12] MEDS: LACTOBACILLUS RHAMNOSUS CAP GTB ×3 (06:47→21:06)
[2018-01-12] MEDS: MEDROXYPROGESTERONE 10 MG TAB PO (08:52)
[2018-01-12] MEDS: NEUTRA-PHOS 250 MG PACKET GTB ×2 (08:52→21:06)
[2018-01-12] MEDS: COLLAGENASE 5 GM (UD JAR) TOP (08:53)
[2018-01-12] MEDS: BALSAM PERU/CASTOR OIL 60 GM TUBE TOP (08:53)
[2018-01-12] MEDS: NYSTATIN 30 GM POWDER BTL TOP ×3 (08:53→21:00)
[2018-01-12] MEDS: SILVER SULFADIAZINE 1% 25 GM CR TOP (08:53)
[2018-01-12] MEDS: HYDROCORTISONE 1% 28 GM CR TOP ×3 (08:53→21:00)
[2018-01-12] MEDS: INSULIN ASPART [NOVOLOG] 3 ML PEN SC ×4 (09:16→21:03)
[2018-01-12] MEDS: ATORVASTATIN 80 MG TAB GTB (21:06)
[2018-01-13] MEDS: METOCLOPRAMIDE 10 MG INJ IV ×4 (00:49→17:41)
[2018-01-13] MEDS: LACTOBACILLUS RHAMNOSUS CAP GTB ×3 (05:54→20:11)
[2018-01-13] MEDS: PANTOPRAZOLE 40 MG INJ IV (05:55)
[2018-01-13] MEDS: SILVER SULFADIAZINE 1% 25 GM CR TOP (08:30)
[2018-01-13] MEDS: MEDROXYPROGESTERONE 10 MG TAB PO (08:30)
[2018-01-13] MEDS: BALSAM PERU/CASTOR OIL 60 GM TUBE TOP (08:30)
[2018-01-13] MEDS: NYSTATIN 30 GM POWDER BTL TOP ×3 (08:30→20:12)
[2018-01-13] MEDS: NEUTRA-PHOS 250 MG PACKET GTB ×2 (08:30→20:11)
[2018-01-13] MEDS: HYDROCORTISONE 1% 28 GM CR TOP ×3 (08:30→20:11)
[2018-01-13] MEDS: COLLAGENASE 5 GM (UD JAR) TOP (08:31)
[2018-01-13] MEDS: INSULIN ASPART [NOVOLOG] 3 ML PEN SC ×4 (08:47→20:12)
[2018-01-13] MEDS: ATORVASTATIN 80 MG TAB GTB (20:11)
[2018-01-14] MEDS: METOCLOPRAMIDE 10 MG INJ IV ×5 (00:17→23:50)
[2018-01-14] MEDS: LACTOBACILLUS RHAMNOSUS CAP GTB ×3 (06:34→21:14)
[2018-01-14] MEDS: PANTOPRAZOLE 40 MG INJ IV (06:34)
[2018-01-14] MEDS: INSULIN ASPART [NOVOLOG] 3 ML PEN SC ×4 (10:39→21:00)
[2018-01-14] MEDS: MEDROXYPROGESTERONE 10 MG TAB PO (10:47)
[2018-01-14] MEDS: SILVER SULFADIAZINE 1% 25 GM CR TOP (10:48)
[2018-01-14] MEDS: NEUTRA-PHOS 250 MG PACKET GTB ×2 (10:48→21:14)
[2018-01-14] MEDS: HYDROCORTISONE 1% 28 GM CR TOP ×3 (10:48→21:17)
[2018-01-14] MEDS: BALSAM PERU/CASTOR OIL 60 GM TUBE TOP (10:49)
[2018-01-14] MEDS: NYSTATIN 30 GM POWDER BTL TOP ×3 (10:49→21:17)
[2018-01-14] MEDS: COLLAGENASE 5 GM (UD JAR) TOP (10:50)
[2018-01-14] MEDS: HEPARIN 1000 UNITS/ML 10 ML INJ CATHETER (15:58)
[2018-01-14] MEDS: EPOETIN 10000 UNITS/1 ML INJ (ESRD) SC (17:52)
[2018-01-14] MEDS: ATORVASTATIN 80 MG TAB GTB (21:14)
[2018-01-15] MEDS: LACTOBACILLUS RHAMNOSUS CAP GTB ×2 (05:09→14:59)
[2018-01-15] MEDS: PANTOPRAZOLE 40 MG INJ IV (05:09)
[2018-01-15] MEDS: METOCLOPRAMIDE 10 MG INJ IV (05:10)
[2018-01-15] MEDS: MEDROXYPROGESTERONE 10 MG TAB PO (10:01)
[2018-01-15] MEDS: NYSTATIN 30 GM POWDER BTL TOP ×3 (10:01→21:49)
[2018-01-15] MEDS: NEUTRA-PHOS 250 MG PACKET GTB (10:01)
[2018-01-15] MEDS: SILVER SULFADIAZINE 1% 25 GM CR TOP (10:02)
[2018-01-15] MEDS: COLLAGENASE 5 GM (UD JAR) TOP (10:02)
[2018-01-15] MEDS: BALSAM PERU/CASTOR OIL 60 GM TUBE TOP (10:02)
[2018-01-15] MEDS: HYDROCORTISONE 1% 28 GM CR TOP ×3 (10:03→21:49)
[2018-01-15] MEDS: INSULIN ASPART [NOVOLOG] 3 ML PEN SC ×4 (10:30→21:00)
[2018-01-15 11:08] LABS: ADD MAN DIFF? NO
[2018-01-15 11:12] LABS: WHITE BLOOD COUNT 13.8 10^3/ul (4.8-10.8)
[2018-01-15 11:12] LABS: BASOPHIL # 0.1 10^3/ul (0.0-0.1); BASOPHILS % 0.4 % (0.0-2.0); EOSINOPHILS # 0.2 10^3/ul (0.0-0.5); EOSINOPHILS % 1.4 % (0.0-7.0); HEMATOCRIT 38.3 % (37.0-47.0); LYMPHOCYTES # 1.3 10^3/ul (0.8-2.9); LYMPHOCYTES % 9.3 % (15.0-51.0); MEAN CORPUSCULAR HEMOGLOBIN 28.8 pg (29.0-33.0); MEAN CORPUSCULAR HGB CONC 31.3 g/dl (32.0-37.0); MEAN CORPUSCULAR VOLUME 91.8 fl (82.0-101.0); MEAN PLATELET VOLUME 10.9 fl (7.4-10.4); MONOCYTE # 1.4 10^3/ul (0.3-0.9); MONOCYTES % 10.1 % (0.0-11.0); NEUTROPHIL # 10.8 10^3/ul (1.6-7.5); NUCLEATED RED BLOOD CELLS% 0.1 /100WBC (0.0-0.0); PLATELET COUNT 262 10^3/UL (140-415); RED BLOOD COUNT 4.17 10^6/ul (4.20-5.40)
[2018-01-15 11:13] LABS: POSITIVE DIFF @See below
[2018-01-15 11:35] LABS: ANION GAP 14 (8-16); BLOOD UREA NITROGEN 20 mg/dl (7-20); CALCIUM 7.5 mg/dl (8.4-10.2); CARBON DIOXIDE 26 mmol/L (21-31); CHLORIDE 103 mmol/L (97-110); CREATININE 1.07 mg/dl (0.44-1.00); GLUCOSE 182 mg/dl (70-220); MAGNESIUM 2.2 mg/dl (1.7-2.5); PHOSPHORUS 3.1 mg/dl (2.5-4.9); POTASSIUM 4.7 mmol/L (3.5-5.1); SODIUM 138 mmol/L (135-144)
[2018-01-15] MEDS: ATORVASTATIN 80 MG TAB GTB (21:45)
== END 2018-01-15 23:35 | disposition short-term general hospital (02) | DRG 870 ==
LOC: ICU 23:07 → TEL 01-10 17:50
PROC: 5A1955Z Respiratory Ventilation, Greater than 96 Consecutive Hours (ICD-10-PCS; principal; 2018-01-04)
PROC: 5A1D80Z Performance of Urinary Filtration, Prolonged Intermittent, 6-18 hours Per Day (ICD-10-PCS; 2018-01-07)
PROC: 30233N1 Transfusion of Nonautologous Red Blood Cells into Peripheral Vein, Percutaneous Approach (ICD-10-PCS; 2018-01-09)
PROC: 5A1D80Z Performance of Urinary Filtration, Prolonged Intermittent, 6-18 hours Per Day (ICD-10-PCS; 2018-01-09)
PROC: 5A1D80Z Performance of Urinary Filtration, Prolonged Intermittent, 6-18 hours Per Day (ICD-10-PCS; 2018-01-11)
PROC: 5A1D80Z Performance of Urinary Filtration, Prolonged Intermittent, 6-18 hours Per Day (ICD-10-PCS; 2018-01-14)
DX: A41.9 Sepsis, unspecified organism (principal); R65.21 Severe sepsis with septic shock; N18.6 End stage renal disease; J18.9 Pneumonia, unspecified organism; G92 Toxic encephalopathy; N17.9 Acute kidney failure, unspecified; I13.2 Hypertensive heart and chronic kidney disease with heart failure and with stage 5 chronic kidney disease, or end stage renal disease; I50.32 Chronic diastolic (congestive) heart failure; D62 Acute posthemorrhagic anemia; K92.1 Melena; E11.52 Type 2 diabetes mellitus with diabetic peripheral angiopathy with gangrene; I96 Gangrene, not elsewhere classified; J96.11 Chronic respiratory failure with hypoxia; I42.9 Cardiomyopathy, unspecified; C54.1 Malignant neoplasm of endometrium; E11.22 Type 2 diabetes mellitus with diabetic chronic kidney disease; I69.391 Dysphagia following cerebral infarction; Z93.1 Gastrostomy status; Z93.0 Tracheostomy status; I69.398 Other sequelae of cerebral infarction; F01.50 Vascular dementia, unspecified severity, without behavioral disturbance, psychotic disturbance, mood disturbance, and anxiety; E83.9 Disorder of mineral metabolism, unspecified; I25.10 Atherosclerotic heart disease of native coronary artery without angina pectoris; I35.0 Nonrheumatic aortic (valve) stenosis; I48.0 Paroxysmal atrial fibrillation; Z66 Do not resuscitate; I65.23 Occlusion and stenosis of bilateral carotid arteries; R19.7 Diarrhea, unspecified; L89.610 Pressure ulcer of right heel, unstageable; L89.890 Pressure ulcer of other site, unstageable; L89.150 Pressure ulcer of sacral region, unstageable; L89.620 Pressure ulcer of left heel, unstageable
CPT/HCPCS: 36430; 36600; 71045; 80048; 80053; 80150; 80202; 82270; 82803; 82962; 83605; 83735; 84100; 85025; 86704; 86709; 86803; 86850; 86900; 86901; 86920; 87040; 87075; 87081; 87086; 87340; 90935; 94002; 94003